=== PATIENT | male | born 1945 | race Caucasian/White ===

== ENCOUNTER → 2017-08-04 | Outpatient (CLI) | payer OTHER ==
--- NOTE | 2017-08-04 16:22 | CONS ---
CONSULTATION REASON FOR CONSULTATION: Consultation for sleep apnea. HISTORY: 72-year-old male patient, concerned of sleep apnea and he was referred to me for evaluation. He is sleeping excessively between midnight and 8:00 am, and he takes nap between 2:00 pm and 4:00 pm. At times, he feels sleepy and tired and at other times he sleeps because he is bored. He is not sure if he snores as he does not have any bed partner. He wakes up sometimes tired and fatigued and as mentioned he sleeps during the day and takes naps. No recent weight gain or weight loss. No family history of sleep apnea. Fountain score is at 8. No falling asleep while day-to-day activities or while driving. PAST MEDICAL HISTORY: 1. Coronary artery disease with previous coronary intervention and stenting. 2. Stage III chronic renal failure. 3. History of transient ischemic attack. 4. Abdominal aortic aneurysm status post endovascular stent grafting. 5. Chronic atrial fibrillation. 6. Benign position vertigo. SURGICAL HISTORY: Includes cardiac catheterization, insertion of coronary stents, endovascular stent grafting for abdominal aortic aneurysm, aortogram. DRUG ALLERGIES: Not known. OUTPATIENT MEDICATION LIST: Includes: 1. Coreg 6.25 mg p.o. b.i.d. 2. Aspirin 81 mg p.o. daily. 3. Lasix 40 mg p.o. daily. 4. Potassium 10 mEq p.o. daily. 5. Iron 325 mg p.o. daily. 6. Coumadin therapy 5 mg Mondays and and 2.5 mg rest of the week. 7. Lipitor 80 mg p.o. daily. SOCIAL HISTORY: Nonsmoker. No history of alcohol. No history of IV drugs. FAMILY HISTORY: Negative for sleep apnea. REVIEW OF SYSTEMS: 12-point review of system was done. Positive findings are all mentioned above in the history of present illness. Of significance is the absence of any waking up choking or gasping for air. No insomnia. No grinding of the teeth. No sleepwalking. No dry mouth. No anxiety or panic attacks. No palpitation. No heartburn. No restlessness in the lower extremities. No sleepwalking or sleep talking. No gasping for air. No anxiety. No irritability. No depression. No sexual dysfunction. No cataplexy. No sleep paralysis. No hallucinations. PHYSICAL EXAMINATION: BP is 134/72, pulse 66, respirations 16, temp 97.3, saturation 95% on room air. Weight is 187, height is 5 feet 10 inches. Neck size 15-3/4 of an inch. Fountain score is at 8. BMI 26.4. GENERAL APPEARANCE: Calm comfortable. HEENT Mallampati class IV. There is no goiter or neck mass. LUNGS: Clear to auscultation. HEART: Sounds regular rhythm. Normal S1, S2. ABDOMEN: Soft, nontender. No organomegaly. EXTREMITIES: No edema. No cyanosis or clubbing. IMPRESSION: 1. Obstructive sleep apnea suspected under investigation, my overall clinical suspicion is low. 2. Loud snoring. 3. Mallampati class 4. 4. Chronic renal failure with stage 3 kidney disease. 5. Coronary artery disease with previous coronary intervention and stenting. 6. Transient ischemic attack history of. 7. Abdominal aortic aneurysm status post endovascular stent grafting. 8. Chronic atrial fibrillation. 9. Benign positional vertigo. PLAN: 1. Proceed with a home sleep study. 2. Further recommendations are to follow based on the results of the home sleep study. 3. My overall suspicion for significant sleep apnea is low. MMODL / IJN: [id number] /
== END ==
LOC: SLEEP 14:58
PROVIDERS: ATTEND Internal Medicine Critical Care Medicine
DX: G47.30 Sleep apnea, unspecified (principal); N18.3 Chronic kidney disease, stage 3 (moderate); I25.10 Atherosclerotic heart disease of native coronary artery without angina pectoris; I71.4 Abdominal aortic aneurysm, without rupture; I48.2 Chronic atrial fibrillation; H81.10 Benign paroxysmal vertigo, unspecified ear; Z86.73 Personal history of transient ischemic attack (TIA), and cerebral infarction without residual deficits; Z79.899 Other long term (current) drug therapy; Z79.82 Long term (current) use of aspirin; Z79.01 Long term (current) use of anticoagulants
CPT/HCPCS: 99211

== ENCOUNTER 2018-11-17 12:08 | Emergency (ER) | payer OTHER, MEDICARE ==
[2018-11-17] MEDS ORDERED: SODIUM CHLORIDE 0.9% 500 ML 500 ML IV STA (13:20)
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
[2018-11-17 14:11] LABS: Basophils # (A) 0.1 k/uL (0-0.2); Basophils % (A) 1 %; Eosinophils # (A) 0.2 k/uL (0-0.7); Eosinophils % (A) 2 %; HCT 43.4 % (39.0-53.0); HGB 13.8 gm/dL (13.0-17.5); Lymphocytes % (A) 12 %; MCH 29.7 pg (25.0-35.0); MCHC 31.9 g/dL (31.0-37.0); MCV 93.1 fL (80.0-100.0); Mean Platelet Volume 7.1; Monocytes # (A) 0.5 k/uL (0-1.0); Monocytes % (A) 6 %; Neutrophils # (A) 6.9 k/uL (1.3-7.7); Neutrophils % (A) 78 %; Platelet Count 196 k/uL (150-450); RBC 4.66 m/uL (4.30-5.90); RDW 14.7 % (11.5-15.5); WBC 8.8 k/uL (3.8-10.6)
[2018-11-17 14:19] LABS: Partial Thromboplastin Time 27.5 sec (22.0-30.0); Prothrombin Time 19.4 sec (9.0-12.0)
[2018-11-17 14:33] LABS: Albumin 4.1 g/dL (3.5-5.0); Potassium 5.1 mmol/L (3.5-5.1); Total Bilirubin 1.8 mg/dL (0.2-1.3); Total Protein 7.3 g/dL (6.3-8.2)
[2018-11-17 14:57] LABS: Troponin I 0.03 ng/mL (0.000-0.034)
[2018-11-17 15:01] LABS: Amorphous Sediment,Urine Rare /hpf; Appearance,Urine Clear (Clear); Bilirubin,Urine Negative (Negative); Blood,Urine Trace (Negative); Color,Urine Yellow; Glucose,Urine (UA) Negative (Negative); Hyaline Casts,Urine 23 /lpf (0-2); Ketones,Urine Negative (Negative); Leukocyte Esterase,Urine Negative (Negative); Mucus,Urine Rare /hpf; Nitrite,Urine Negative (Negative); Protein,Urine 1+ (Negative); RBC,Urine 2 /hpf (0-5); Squamous Epithelial Cell,Urine <1 /hpf (0-4); Urobilinogen,Urine <2.0 mg/dL (<2.0); WBC,Urine 1 /hpf (0-5)
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
[2018-11-17 15:11] VITALS: RESP 16
[2018-11-17] MEDS ORDERED: CYCLOBENZAPRINE 10MG STARTER 3 TAB BTL PO STA (16:10)
[2018-11-17 16:30] VITALS: BP 139/79; PULSE 60; TEMP 98.5
== END 2018-11-17 16:37 | disposition home or self-care (01) ==
LOC: EC 12:08
DX: M54.6 Pain in thoracic spine (principal); S29.9XXA Unspecified injury of thorax, initial encounter; I13.10 Hypertensive heart and chronic kidney disease without heart failure, with stage 1 through stage 4 chronic kidney disease, or unspecified chronic kidney disease; I25.10 Atherosclerotic heart disease of native coronary artery without angina pectoris; N18.3 Chronic kidney disease, stage 3 (moderate); E78.5 Hyperlipidemia, unspecified; I10 Essential (primary) hypertension; I48.91 Unspecified atrial fibrillation; Z87.891 Personal history of nicotine dependence; Z79.01 Long term (current) use of anticoagulants; Z79.82 Long term (current) use of aspirin; Z79.899 Other long term (current) drug therapy; Z95.5 Presence of coronary angioplasty implant and graft; V99.XXXA Unspecified transport accident, initial encounter; Y93.89 Activity, other specified; Y92.410 Unspecified street and highway as the place of occurrence of the external cause
CPT/HCPCS: 36415; 71250; 74176; 80053; 81001; 82550; 82553; 84484; 85025; 85610; 85730; 86850; 86900; 86901; 93005; 99285

== ENCOUNTER 2020-01-08 11:27 | Inpatient (IN) | payer OTHER, MEDICARE ==
[2020-01-08] MEDS ORDERED: AMPICILLIN-SULBACTAM 3 GM in SODIUM CHLORIDE 0.9% 100 ML IVPB STA (12:00)
--- NOTE | 2020-01-08 12:02 | ED ---
Skin/Abscess/FB HPI - General Chief complaint: Skin/Abscess/Foreign Body Stated complaint: colitis problem Time Seen by Provider: 01/08/20 11:30 Source: patient Mode of arrival: wheelchair Limitations: no limitations - History of Present Illness Initial comments: The patient is a 74-year-old male with past nuchal history of A. fib, stage III kidney failure who presents to the emergency department with reported right foot cellulitis. States he started developing pain, swelling and redness to his right foot on December 29. He went and saw his primary care doctor placed him on Bactrim. States that he is done with the course of the antibiotics for his cellulitis persists. Admits that he ate possibly had one episode previously in the past. Extremities tender to walk on and therefore is using crutches. He normally goes to the gym [address] is also been unable to be physically active due to the infection. Denies any fevers or chills. No nausea or vomiting. Has been taking the antibiotic as directed. Denies any trauma to the extremity. No history of gout. No calf pain or swelling. There are no other alleviating, precipitating or modifying factors - Related Data Home Medications Medication Instructions Recorded Confirmed Aspirin EC [Ecotrin Low Dose] 81 mg PO DAILY 11/17/18 01/08/20 Atorvastatin [Lipitor] 80 mg PO HS 11/17/18 01/08/20 Enalapril [Vasotec] 20 mg PO HS 11/17/18 01/08/20 Metoprolol Succinate [Toprol XL] 50 mg PO HS 11/17/18 01/08/20 Warfarin Sodium [Coumadin] 2.5 mg PO SUMOWEFR 11/17/18 01/08/20 Warfarin Sodium [Coumadin] 5 mg PO TUTHSA 11/17/18 01/08/20 Furosemide [Lasix] 40 mg PO DAILY 01/08/20 01/08/20 Potassium Chloride ER [K-Dur 10] 10 meq PO DAILY 01/08/20 01/08/20 Allergies Allergy/AdvReac Type Severity Reaction Status Date / Time No Known Allergies Allergy Verified 01/08/20 14:25 Review of Systems ROS Statement: Those systems with pertinent positive or pertinent negative responses have been documented in the HPI. ROS Other: All systems not noted in ROS Statement are negative. Past Medical History Past Medical History: Atrial Fibrillation, Coronary Artery Disease (CAD), Hyperlipidemia, Hypertension, Renal Disease Additional Past Medical History / Comment(s): stage 3 renal failure History of Any Multi-Drug Resistant Organisms: None Reported Past Surgical History: Heart Catheterization With Stent Additional Past Surgical History / Comment(s): aaa repair 5 cardiac stents Past Psychological History: No Psychological Hx Reported Smoking Status: Former smoker Past Alcohol Use History: None Reported Past Drug Use History: None Reported General Exam Limitations: no limitations General appearance: alert, in no apparent distress Eye exam: Present: normal appearance, PERRL, EOMI. Absent: scleral icterus, conjunctival injection, periorbital swelling Respiratory exam: Present: normal lung sounds bilaterally. Absent: respiratory distress, wheezes, rales, rhonchi, stridor Cardiovascular Exam: Present: regular rate, normal rhythm, normal heart sounds. Absent: systolic murmur, diastolic murmur, rubs, gallop, clicks GI/Abdominal exam: Present: soft, normal bowel sounds. Absent: distended, tenderness, guarding, rebound, rigid Extremities exam: Present: pedal edema, other (right foot is warm and red to the touch. Significant dry skin to left heel and plantar aspect. 2+ DP and PT pulses. cellulitic changes only involve dorsal foot. Compartments soft. No calf pain, swelling or redness. ) Course Vital Signs 01/08/20 01/08/20 11:29 14:00 Temperature 97.4 F L Pulse Rate 76 66 Respiratory 18 18 Rate Blood Pressure 146/90 O2 Sat by Pulse 99 98 Oximetry Medical Decision Making - Medical Decision Making Upon arrival the patient was placed in room 20. A thorough history and physical exam was performed. Peripheral IV was established. Laboratory studies were conducted. The patient went over for an x-ray of his right foot which did not demonstrate any signs of ST myelitis. Soft tissue edema present. Patient has multiple lab abnormalities including an INR of 7.2. Creatinine is 3.0. Lactic acid is 1.3. Discuss results with the patient. He was given a dose of Unasyn in the emergency department after blood cultures were obtained. Because the patient's multiple lab abnormalities to did recommend admission in order to hold the nephrotoxins and provide the patient with fluids. I will repeat the INR and creatinine tomorrow. The patient did agree to this treatment plan. He was then awaiting a bed on the floor. Dr. Murphy was accepting doctor. - Lab Data Result diagrams: 01/09/20 06:53 01/09/20 06:53 Lab Results 01/08/20 01/08/20 01/08/20 Range/Units 12:09 12:09 12:09 WBC 10.5 (3.8-10.6) k/uL RBC 5.10 (4.30-5.90) m/uL Hgb 15.4 (13.0-17.5) gm/dL Hct 47.4 (39.0-53.0) % MCV 93.0 (80.0-100.0) fL MCH 30.2 (25.0-35.0) pg MCHC 32.4 (31.0-37.0) g/dL RDW 14.4 (11.5-15.5) % Plt Count 289 (150-450) k/uL Neutrophils % 79 % Lymphocytes % 9 % Monocytes % 9 % Eosinophils % 1 % Basophils % 0 % Neutrophils # 8.3 H (1.3-7.7) k/uL Lymphocytes # 1.0 (1.0-4.8) k/uL Monocytes # 0.9 (0-1.0) k/uL Eosinophils # 0.1 (0-0.7) k/uL Basophils # 0.0 (0-0.2) k/uL ESR (0-15) mm/hr PT (9.0-12.0) sec INR (<1.2) Sodium 139 (137-145) mmol/L Potassium 5.1 (3.5-5.1) mmol/L Chloride 104 (98-107) mmol/L Carbon Dioxide 23 (22-30) mmol/L Anion Gap 12 mmol/L BUN 48 H (9-20) mg/dL Creatinine 3.06 H (0.66-1.25) mg/dL Est GFR (CKD-EPI)AfAm 22 (>60 ml/min/1.73 sqM) Est GFR (CKD-EPI)NonAf 19 (>60 ml/min/1.73 sqM) Glucose 79 (74-99) mg/dL Plasma Lactic Acid Jj 1.3 (0.7-2.0) mmol/L Uric Acid (3.5-8.5) mg/dL Calcium 9.0 (8.4-10.2) mg/dL Total Bilirubin 0.4 (0.2-1.3) mg/dL AST 44 (17-59) U/L ALT 14 (4-49) U/L Alkaline Phosphatase 93 (38-126) U/L C-Reactive Protein (<10.0) mg/L Total Protein 7.5 (6.3-8.2) g/dL Albumin 4.2 (3.5-5.0) g/dL 01/08/20 01/08/20 01/08/20 Range/Units 12:09 12:09 12:09 WBC (3.8-10.6) k/uL RBC (4.30-5.90) m/uL Hgb (13.0-17.5) gm/dL Hct (39.0-53.0) % MCV (80.0-100.0) fL MCH (25.0-35.0) pg MCHC (31.0-37.0) g/dL RDW (11.5-15.5) % Plt Count (150-450) k/uL Neutrophils % % Lymphocytes % % Monocytes % % Eosinophils % % Basophils % % Neutrophils # (1.3-7.7) k/uL Lymphocytes # (1.0-4.8) k/uL Monocytes # (0-1.0) k/uL Eosinophils # (0-0.7) k/uL Basophils # (0-0.2) k/uL ESR 29 H (0-15) mm/hr PT 74.4 H (9.0-12.0) sec INR 7.2 H* (<1.2) Sodium (137-145) mmol/L Potassium (3.5-5.1) mmol/L Chloride (98-107) mmol/L Carbon Dioxide (22-30) mmol/L Anion Gap mmol/L BUN (9-20) mg/dL Creatinine (0.66-1.25) mg/dL Est GFR (CKD-EPI)AfAm (>60 ml/min/1.73 sqM) Est GFR (CKD-EPI)NonAf (>60 ml/min/1.73 sqM) Glucose (74-99) mg/dL Plasma Lactic Acid Jj (0.7-2.0) mmol/L Uric Acid 7.6 (3.5-8.5) mg/dL Calcium (8.4-10.2) mg/dL Total Bilirubin (0.2-1.3) mg/dL AST (17-59) U/L ALT (4-49) U/L Alkaline Phosphatase (38-126) U/L C-Reactive Protein (<10.0) mg/L Total Protein (6.3-8.2) g/dL Albumin (3.5-5.0) g/dL 01/08/20 Range/Units 12:09 WBC (3.8-10.6) k/uL RBC (4.30-5.90) m/uL Hgb (13.0-17.5) gm/dL Hct (39.0-53.0) % MCV (80.0-100.0) fL MCH (25.0-35.0) pg MCHC (31.0-37.0) g/dL RDW (11.5-15.5) % Plt Count (150-450) k/uL Neutrophils % % Lymphocytes % % Monocytes % % Eosinophils % % Basophils % % Neutrophils # (1.3-7.7) k/uL Lymphocytes # (1.0-4.8) k/uL Monocytes # (0-1.0) k/uL Eosinophils # (0-0.7) k/uL Basophils # (0-0.2) k/uL ESR (0-15) mm/hr PT (9.0-12.0) sec INR (<1.2) Sodium (137-145) mmol/L Potassium (3.5-5.1) mmol/L Chloride (98-107) mmol/L Carbon Dioxide (22-30) mmol/L Anion Gap mmol/L BUN (9-20) mg/dL Creatinine (0.66-1.25) mg/dL Est GFR (CKD-EPI)AfAm (>60 ml/min/1.73 sqM) Est GFR (CKD-EPI)NonAf (>60 ml/min/1.73 sqM) Glucose (74-99) mg/dL Plasma Lactic Acid Jj (0.7-2.0) mmol/L Uric Acid (3.5-8.5) mg/dL Calcium (8.4-10.2) mg/dL Total Bilirubin (0.2-1.3) mg/dL AST (17-59) U/L ALT (4-49) U/L Alkaline Phosphatase (38-126) U/L C-Reactive Protein 39.0 H (<10.0) mg/L Total Protein (6.3-8.2) g/dL Albumin (3.5-5.0) g/dL Disposition Clinical Impression: Cellulitis of right foot Disposition: ADMITTED IP TO THIS [facility] Condition: Stable Is patient prescribed a controlled substance at d/c from ED?: No Decision to Admit Reason: Admit from EC Decision Date: 01/08/20 Decision Time: 13:36
[2020-01-08 12:24] LABS: Basophils % (A) 0 %; Eosinophils # (A) 0.1 k/uL (0-0.7); Eosinophils % (A) 1 %; HCT 47.4 % (39.0-53.0); HGB 15.4 gm/dL (13.0-17.5); Lymphocytes % (A) 9 %; MCH 30.2 pg (25.0-35.0); MCHC 32.4 g/dL (31.0-37.0); Mean Platelet Volume 7.9; Monocytes # (A) 0.9 k/uL (0-1.0); Monocytes % (A) 9 %; Neutrophils # (A) 8.3 k/uL (1.3-7.7); Neutrophils % (A) 79 %; Platelet Count 289 k/uL (150-450); RDW 14.4 % (11.5-15.5); WBC 10.5 k/uL (3.8-10.6)
--- NOTE | 2020-01-08 12:25 | XR ---
EXAMINATION TYPE: XR foot complete RT DATE OF EXAM: 01/08/2020 COMPARISON: NONE HISTORY: Soft tissue swelling cellulitis TECHNIQUE: Three views are submitted. FINDINGS: The osseous structures are intact. There is no acute fracture or dislocation. Joint spaces are p reserved. There is diffuse soft tissue edema. No destructive changes. Hammertoe deformities noted. Ch ronic appearing ossification adjacent to base fifth metatarsal. IMPRESSION: 1. No acute fracture or dislocation. If symptoms persist, follow-up exam in 7 to 10 days could be ob tained. 2. Soft tissue edema correlate for trauma or cellulitis. No destructive changes.
[2020-01-08 12:36] LABS: Albumin 4.2 g/dL (3.5-5.0); Potassium 5.1 mmol/L (3.5-5.1); Total Bilirubin 0.4 mg/dL (0.2-1.3); Total Protein 7.5 g/dL (6.3-8.2)
[2020-01-08 13:15] LABS: Prothrombin Time 74.4 sec (9.0-12.0)
[2020-01-08 13:18] LABS: INR 7.2 (<1.2)
[2020-01-08] MEDS ORDERED: SODIUM CHLORIDE 0.9% 1,000 ML IV ONE (13:33)
[2020-01-08] MEDS ORDERED: NALOXONE 0.4 MG/ML 1 ML VIAL IV PRN (13:37)
[2020-01-08] MEDS: SODIUM CHLORIDE 0.9% 1,000 ML IV SCH ×2 (13:52→20:52)
[2020-01-08] MEDS ORDERED: HYDROcodone/APAP 5-325MG 1 EACH TAB PO PRN (15:45)
[2020-01-08] MEDS ORDERED: ACETAMINOPHEN TAB 500 MG TAB PO PRN (15:45)
[2020-01-08] MEDS ORDERED: ALPRAZolam 0.25 MG TAB PO PRN (15:45)
[2020-01-08] MEDS: AMPICILLIN-SULBACTAM 3 GM in SODIUM CHLORIDE 0.9% 100 ML IVPB SCH ×2 (17:00→23:52)
--- NOTE | 2020-01-08 19:41 | XR ---
EXAMINATION TYPE: XR chest 1V portable DATE OF EXAM: 01/08/2020 COMPARISON: NONE HISTORY: Extremity swelling TECHNIQUE: 2 views FINDINGS: Heart is enlarged. There is no heart failure. There are no hilar masses. Costophrenic angle s are clear. There is left axillary pacemaker with the lead tips in the right ventricle. Thoracic aor ta is atheromatous. IMPRESSION: No active cardiopulmonary disease. Cardiomegaly.
[2020-01-08] MEDS: METOPROLOL SUCCINATE (ER) 50 MG TAB.ER.24H PO SCH (20:51)
--- NOTE | 2020-01-08 20:54 | HP ---
HISTORY AND PHYSICAL DATE OF SERVICE: 01/08/2020. CHIEF COMPLAINTS: Right foot swelling and as well as Coumadin coagulopathy. HISTORY OF PRESENT ILLNESS: This 74-year-old gentleman with a past medical history of multiple medical problems, history of atrial fibrillation, CAD, hypertension, hyperlipidemia, history of CAD/stent being followed by [facility] in the outpatient setting also had chronic kidney stage 3. The patient's creatinine was normally. The patient also had right foot cellulitis. Patient recently received Bactrim and currently the patient is complaining of pain. Continue the pain and swelling and the patient had difficulty in walking also. The patient came to [facility] and was admitted for further evaluation and treatment. On admission, evaluation showed INR was 7.2 and creatinine 3.6, indicating acute on chronic renal failure as well Coumadin coagulopathy. There is no active GI bleeding at this time. The patient is admitted to the hospital for further evaluation and treatment. There is no history of fever, rigors or chills. No history of headache, loss of consciousness or seizures. PAST MEDICAL HISTORY: History of atrial fibrillation, CAD, hypertension, hyperlipidemia, history of renal failure, history of CAD/stent. MEDICATIONS: Home medications are: 1. Coumadin 2.5 mg p.o. Thursday, Thursday, Thursday, Thursday and 5 mg Thursday, , Thursday. 2. Toprol-XL 50 mg q.h.s. 3. Vasotec 20 mg q.h.s. 4. Lipitor 80 mg q.h.s. 5. K-Dur 10 mEq p.o. daily. 6. Lasix 40 mg daily. 7. Ecotrin 81 mg daily. ALLERGIES: None. FAMILY HISTORY: No history of heart disease or strokes in the family. SOCIAL HISTORY: Previous history of smoking. No history of current smoking. No alcohol intake. REVIEW OF SYSTEMS: ENT: No diminished vision. No diminished hearing. CARDIOVASCULAR system as mentioned earlier. GI no nausea or vomiting. as mentioned earlier. NERVOUS SYSTEMS: As mentioned earlier. ALLERGIES/IMMUNOLOGY: No asthma or hayfever. MUSCULOSKELETAL as mentioned earlier. HEMATOLOGY/ONCOLOGY: As mentioned earlier. ENDOCRINE: as mentioned earlier. CONSTITUTIONAL: As mentioned earlier. DERMATOLOGY: Negative. RHEUMATOLOGY: Negative. PSYCHIATRY: As mentioned earlier. PHYSICAL EXAMINATION: Alert and oriented times two. Pulse 58. Blood pressure 160/80, respiration 18, temp 97.5, pulse ox 98% on room air. HEENT: Conjunctivae normal. Oral mucosa moist. NECK is no jugular venous distention. No carotid bruit. No lymph node enlargement. CARDIOVASCULAR SYSTEM: S1, S2 muffled. No S3, no S4. RESPIRATIONS: Breath sounds diminished in the bases. No rhonchi. No crackles. ABDOMEN: Soft, nontender. No mass palpable. LEGS: Right leg significant swelling and erythema. Painful movements also. LYMPHATICS: No lymph nodes palpable in the neck, axillae or groin. SKIN: No ulcer, no rashes and no bleeding. JOINTS: No active deforming arthropathy. NERVOUS SYSTEM: Higher functions as mentioned earlier. Cranial nerves 2 thru 12 grossly intact. Moves all 4 limbs. No focal deficits. LAB STUDIES: WBC 10.2, hemoglobin 16.5 and INR 7.2. Sodium 139, potassium 5.1, creatinine 3.06. ASSESSMENT: 1. Acute right foot cellulitis with failure of outpatient treatment. 2. Acute renal failure, acute on chronic renal failure. 3. Chronic kidney disease stage 3 baseline. 4. Coumadin coagulopathy. 5. History of atrial fibrillation. 6. History of coronary artery disease. 7. Hypertension. 8. Hyperlipidemia. 9. History of coronary artery disease, stent. 10.History of abdominal aortic aneurysm repair. 11.History of cardiac stents x5. 12.Remote history of nicotine dependence. RECOMMENDATIONS AND DISCUSSION: In this 74-year-old gentleman who presented with multiple medical issues, at this time, we will monitor the patient closely. I will hold the Coumadin. We will continue the empiric antibiotics and IV Unasyn. I would also recommend infectious disease evaluation and I would also recommend a serum uric acid. Otherwise, the prognosis is guarded and we will provide symptomatic treatment. Guarded prognosis. Further recommendations to follow. A foot x-ray was done in the ER which showed no acute fractures noted. Soft tissue edema was noted. Repeat x-ray was recommended in 7 to 10 days if symptoms persist by radiology. Again prognosis guarded. A copy of this dictation being forwarded. To Dr. Crain at [facility]. MMODL / IJN: [id number] / [facility]
[2020-01-08 22:08] LABS: Appearance,Urine Clear (Clear); Bilirubin,Urine Negative (Negative); Blood,Urine Trace (Negative); Color,Urine Light Yellow; Glucose,Urine (UA) Negative (Negative); Ketones,Urine Negative (Negative); Leukocyte Esterase,Urine Negative (Negative); Nitrite,Urine Negative (Negative); Protein,Urine Negative (Negative); RBC,Urine 3 /hpf (0-5); Specific Gravity,Urine 1.017 (1.001-1.035); Urobilinogen,Urine <2.0 mg/dL (<2.0); WBC,Urine <1 /hpf (0-5)
[2020-01-09] MEDS: AMPICILLIN-SULBACTAM 3 GM in SODIUM CHLORIDE 0.9% 100 ML IVPB SCH ×4 (05:47→23:20)
[2020-01-09 07:07] LABS: Basophils % (A) 0 %; Eosinophils # (A) 0.2 k/uL (0-0.7); Eosinophils % (A) 3 %; HCT 41.8 % (39.0-53.0); HGB 13.4 gm/dL (13.0-17.5); Lymphocytes # (A) 1.1 k/uL (1.0-4.8); Lymphocytes % (A) 13 %; MCHC 32.1 g/dL (31.0-37.0); MCV 93.6 fL (80.0-100.0); Mean Platelet Volume 8.3; Monocytes # (A) 0.9 k/uL (0-1.0); Monocytes % (A) 10 %; Neutrophils # (A) 6.1 k/uL (1.3-7.7); Neutrophils % (A) 71 %; Platelet Count 241 k/uL (150-450); RBC 4.47 m/uL (4.30-5.90); RDW 14.2 % (11.5-15.5); WBC 8.6 k/uL (3.8-10.6)
[2020-01-09 07:23] LABS: Potassium 4.8 mmol/L (3.5-5.1)
[2020-01-09] MEDS: PANTOPRAZOLE 40 MG TABLET PO SCH (07:24)
[2020-01-09 07:31] LABS: Prothrombin Time 70.8 sec (9.0-12.0)
[2020-01-09 07:55] LABS: INR 6.9 (<1.2)
--- NOTE | 2020-01-09 10:47 | P.NPCON ---
History of Present Illness - Reason for Consult acute renal failure, chronic renal failure - History of Present Illness Reason for consultation: Acute kidney injury on chronic kidney disease History of present illness: Patient is a 74-year-old male seen in renal consultation for acute kidney injury on chronic kidney disease. Patient has chronic kidney disease stage III with baseline creatinine in the range of 2-2.5. Etiology is nephrosclerosis. Patient states he follows with a controlled area checker out of [facility]. He presented to the hospital due to right foot cellulitis. He states he noticed erythema about 10 days ago. He denies any drainage. He did complete 7 day course of Bactrim which she states he was taking twice daily. On admission his creatinine was 3.06 and is 2.36 today. Oral intake is good. No vomiting or diarrhea. No chest pain or shortness of breath. He does take diuretics at home which are currently held. No history of diabetes. No family history of renal disease. Denies use of nonsteroidals. He is afebrile. Hemodynamically stable. Vital signs are stable. General: The patient appeared well nourished and normally developed. HEENT: Head exam is unremarkable. Neck is without jugular venous distension. LUNGS: Lungs are clear to auscultation and percussion. Breath sounds decreased. HEART: Rate and Rhythm are regular. First and second heart sounds normal. No mur murs, rubs or gallops. ABDOMEN: Abdominal exam reveals normal bowel sounds. Non-tender and non-dist ended. No evidence of peritonitis. EXTREMITITES: Trace edema. Past Medical History Past Medical History: Atrial Fibrillation, Coronary Artery Disease (CAD), Hyp erlipidemia, Hypertension, Renal Disease Additional Past Medical History / Comment(s): stage 3 renal failure History of Any Multi-Drug Resistant Organisms: None Reported Past Surgical History: Heart Catheterization With Stent Additional Past Surgical History / Comment(s): aaa repair 5 cardiac stents Past Anesthesia/Blood Transfusion Reactions: No Reported Reaction Date of Last Stent Placement:: Jul 2007 Past Psychological History: No Psychological Hx Reported Smoking Status: Former smoker Past Alcohol Use History: None Reported Past Drug Use History: None Reported Medications and Allergies Home Medications Medication Instructions Recorded Confirmed Type Aspirin EC [Ecotrin Low Dose] 81 mg PO DAILY 11/17/18 01/08/20 History Atorvastatin [Lipitor] 80 mg PO HS 11/17/18 01/08/20 History Enalapril [Vasotec] 20 mg PO HS 11/17/18 01/08/20 History Metoprolol Succinate [Toprol XL] 50 mg PO HS 11/17/18 01/08/20 History Warfarin Sodium [Coumadin] 2.5 mg PO SUMOWEFR 11/17/18 01/08/20 History Warfarin Sodium [Coumadin] 5 mg PO TUTHSA 11/17/18 01/08/20 History Furosemide [Lasix] 40 mg PO DAILY 01/08/20 01/08/20 History Potassium Chloride ER [K-Dur 10] 10 meq PO DAILY 01/08/20 01/08/20 History Allergies Allergy/AdvReac Type Severity Reaction Status Date / Time No Known Allergies Allergy Verified 01/08/20 14:25 Physical Exam Vitals: Vital Signs Temp Pulse Pulse Pulse Resp BP BP 01/09/20 08:00 57 L 16 01/09/20 07:00 98.1 F 57 L 16 110/57 01/09/20 04:00 17 01/09/20 02:15 98.0 F 66 17 138/78 01/08/20 23:49 15 01/08/20 20:00 98.0 F 62 76 19 121/57 01/08/20 15:00 97.5 F L 58 L 18 165/80 01/08/20 14:57 62 18 135/89 01/08/20 14:00 66 18 01/08/20 11:29 97.4 F L 76 18 146/90 Pulse Ox 01/09/20 08:00 01/09/20 07:00 93 L 01/09/20 04:00 01/09/20 02:15 98 01/08/20 23:49 01/08/20 20:00 96 01/08/20 15:00 98 01/08/20 14:57 98 01/08/20 14:00 98 01/08/20 11:29 99 Intake and Output 01/08/20 01/09/20 01/09/20 22:59 06:59 14:59 Intake Total 240 640 Output Total 1200 Balance 240 -560 Intake: Intake, IV Titration 440 Amount Ampicillin-Sulbactam 3 gm 200 In Sodium Chloride 0.9% 100 ml @ 200 mls/hr IVPB Q6HR [facility] Rx#:[id number] Sodium Chloride 0.9% 1, 240 000 ml @ 20 mls/hr IV . Q24H [facility] Rx#:[id number] Oral 240 200 Output: Urine 1200 Other: Voiding Method Urinal Urinal Weight 81.647 kg Results - Lab Results Most recent lab results Calcium 8.0 mg/dL (8.4-10.2) L 01/09/20 06:53 01/09/20 06:53 01/09/20 06:53 Assessment and Plan Plan: Assessment: 1. Acute kidney injury secondary to Bactrim which will impair creatinine secretion. Renal function better today. Creatinine 2.36. No proteinuria on UA. 2. Chronic kidney disease stage III with baseline creatinine in the range of 2- 2.5 secondary to nephrosclerosis. 3. Right foot cellulitis maintained on antibiotics. 4. Hypertension with chronic kidney disease. Controlled. 5. Metabolic acidosis secondary to acute kidney injury and IV fluids. Plan: Avoid nephrotoxins. Encourage oral intake. Check renal ultrasound. Continue to monitor renal function and urine output. Thank you for the consultation. I will continue to follow the patient with you during his hospital stay.
[2020-01-09] MEDS ORDERED: PHYTONADIONE ORAL 5 MG/5 ML ORAL.SYRG PO STA (12:57)
--- NOTE | 2020-01-09 13:44 | US ---
EXAMINATION TYPE: US venous doppler duplex LE RT DATE OF EXAM: 01/09/2020 1:26 PM COMPARISON: NONE CLINICAL HISTORY: redness/swelling. SIDE PERFORMED: Right TECHNIQUE: The lower extremity deep venous system is examined utilizing real time linear array sonog luis armando with graded compression, doppler sonography and color-flow sonography. VESSELS IMAGED: External Iliac Vein (EIV) Common Femoral Vein Deep Femoral Vein Greater Saphenous Vein * Femoral Vein Popliteal Vein Small Saphenous Vein * Proximal Calf Veins (* superficial vessels) There is normal flow, compressibility, vascular waveforms Right Leg: Negative for DVT IMPRESSION: No evident deep venous thrombosis at or above the right knee.
--- NOTE | 2020-01-09 16:50 | CDI ---
Documentation Clarification Form Date: 01/09/2020 04:38:40 PM From: Barbi Mike RN, CCDS Admit Date: 01/08/2020 01:37:00 PM Patient Name: Yash Hurtado Visit Number: [id number] ATTENTION: The Clinical Documentation Specialists (CDI) and [facility] Coding Staff appreciate your assistance in clarifying documentation. Please respond to the clarification below the line at the bottom and electronically sign. The CDI & [facility] Coding staff will review the response and follow-up if needed. Please note: Queries are made part of the Legal Health Record. If you have any questions, please contact the author of this message via ITS. Dr. Moriah Murphy Atrial Fibrillation is documented in the H&P and requires further specificity. History/Risk Factors: CAD, HTN, Stents x 5, AAA, nicotine dependence, CKD stage 3 Clinical Indicators: 01/07 H&P: "Coumadin coagulopathy. History of atrial fibrillation." EKG/telemetry: not ordered Treatment: Toprol XL 50 mg PO HS Coumadin on hold r/t INR 7.2/6.9 In your professional opinion, can you please clarify the type of Atrial Fibrillation, if known? Chronic/Permanent Paroxysmal Persistent Other, please specify Unable to determine (Last Revision: January 2018) Unable to determine MTDD
[2020-01-09 17:03] LABS: Glucose,Whole Blood 89 mg/dL (75-99)
[2020-01-09] MEDS: INSULIN ASPART (NovoLOG) 100 UNIT/ML VIAL SQ SCH ×2 (17:04→21:11)
[2020-01-09] MEDS: methylPREDNISolone SOD SUCCI 125 MG/2 ML VIAL IV SCH ×2 (17:12→23:19)
--- NOTE | 2020-01-09 20:34 | PN ---
PROGRESS NOTE DATE OF SERVICE: 01/09/2020 His 74-year-old gentleman with a past medical history of multiple medical problems admitted with features of significant infection of the right foot with swelling and also renal failure and Coumadin coagulopathy. Coumadin has been on hold, but still the INR is elevated at 6.9. The patient is off Coumadin. Creatinine is 2.3. The patient is on cautious IV hydration. Nephrology following the patient closely with multiple other consultants. PAST MEDICAL HISTORY: Reviewed. REVIEW OF SYMPTOMS: CARDIOVASCULAR: S1, S2. RESPIRATIONS: As mentioned earlier. GI: As mentioned earlier. no dysuria or retention. MEDICATIONS: Current medications are: 1. Tylenol p.r.n. 2. [place] 5 mg q.6h. 3. Xanax 0.25 t.i.d. 4. Unasyn 3 grams IV q.6h. 5. NovoLog scale. 6. Solu-Medrol 60 IV q.8h. 7. Toprol-XL. 8. Narcan. 9. Protonix. PHYSICAL EXAM: Patient is alert, oriented x3. Pulse 57, blood pressure 122/64. Respiratory rate 16. Temperature 98.2, pulse ox 94% on room air. HEENT: Conjunctivae normal. NECK: No JVD. CARDIOVASCULAR: S1, S2 muffled. RESPIRATORY SYSTEM: Breath sounds diminished at the bases. No rhonchi. No crackles. ABDOMEN: Soft, nontender. LEGS is no edema, significant swelling and pain in the left foot. CENTRAL NERVOUS SYSTEM: No focal deficits. LABS: WBC 8.2, hemoglobin 13.5 and INR 6.9, creatinine 2.36. ASSESSMENT: 1. Acute right foot cellulitis with swelling and failure of outpatient treatment. Rule out acute gout. 2. Acute renal failure, acute on chronic renal failure. 3. Chronic kidney stage 3 baseline. 4. Coumadin coagulopathy. 5. History of atrial fibrillation. 6. History of coronary artery disease. 7. Hypertension. 8. Hyperlipidemia. 9. History of coronary artery disease, stent. 10.History of abdominal aortic aneurysm repair. 11.History of cardiac stent x3. 12.Remote history of nicotine dependence. RECOMMENDATIONS AND DISCUSSION: In this 74-year-old gentleman who presented with multiple complex medical issues. We will monitor the patient closely, continue the current medications. Symptomatic treatment. Otherwise, I recommend ultrasound of the right leg for DVT. Short course of high-dose IV steroids. Continue the rest of medications. Prognosis guarded. Further recommendations to follow. MMODL / IJN: [id number] /
[2020-01-09 20:49] LABS: Glucose,Whole Blood 119 mg/dL (75-99)
[2020-01-09] MEDS: SODIUM CHLORIDE 0.9% 1,000 ML IV SCH (21:11)
[2020-01-09] MEDS: METOPROLOL SUCCINATE (ER) 50 MG TAB.ER.24H PO SCH (21:11)
[2020-01-10] MEDS: AMPICILLIN-SULBACTAM 3 GM in SODIUM CHLORIDE 0.9% 100 ML IVPB SCH ×2 (05:15→12:00)
[2020-01-10] MEDS: methylPREDNISolone SOD SUCCI 125 MG/2 ML VIAL IV SCH ×2 (05:15→11:58)
[2020-01-10 06:51] LABS: Glucose,Whole Blood 131 mg/dL (75-99)
[2020-01-10 07:26] LABS: Basophils % (A) 0 %; Eosinophils % (A) 0 %; HCT 44.4 % (39.0-53.0); HGB 14.1 gm/dL (13.0-17.5); Lymphocytes # (A) 0.5 k/uL (1.0-4.8); Lymphocytes % (A) 5 %; MCH 29.6 pg (25.0-35.0); MCHC 31.8 g/dL (31.0-37.0); MCV 93.1 fL (80.0-100.0); Mean Platelet Volume 7.9; Monocytes # (A) 0.2 k/uL (0-1.0); Monocytes % (A) 2 %; Neutrophils # (A) 11.2 k/uL (1.3-7.7); Neutrophils % (A) 94 %; Platelet Count 287 k/uL (150-450); RBC 4.76 m/uL (4.30-5.90); RDW 14.2 % (11.5-15.5)
[2020-01-10 07:37] LABS: INR 1.8 (<1.2)
[2020-01-10 07:41] LABS: Calcium 8.7 mg/dL (8.4-10.2); Magnesium 2.4 mg/dL (1.6-2.3); Potassium 5.1 mmol/L (3.5-5.1)
[2020-01-10] MEDS: INSULIN ASPART (NovoLOG) 100 UNIT/ML VIAL SQ SCH ×2 (07:41→12:01)
[2020-01-10] MEDS: PANTOPRAZOLE 40 MG TABLET PO SCH (07:41)
[2020-01-10 08:36] VITALS: TEMP 97.5
--- NOTE | 2020-01-10 10:43 | P.PN ---
Subjective Patient is seen in follow-up for acute kidney injury on chronic kidney disease. GFR is at baseline. Has good urine output. Denies chest pain or shortness of breath. Oral intake is good. Vital signs are stable. General: The patient appeared well nourished and normally developed. HEENT: Head exam is unremarkable. Neck is without jugular venous distension. LUNGS: Lungs are clear to auscultation and percussion. Breath sounds decreased. HEART: Rate and Rhythm are regular. First and second heart sounds normal. No murmurs, rubs or gallops. ABDOMEN: Abdominal exam reveals normal bowel sounds. Non-tender and non- distended. No evidence of peritonitis. EXTREMITITES: Trace edema. Objective - Vital Signs Vital signs: Vital Signs Temp 97.5 F L 01/10/20 07:00 Pulse 69 01/10/20 07:00 Resp 17 01/10/20 07:00 BP 148/88 01/10/20 07:00 Pulse Ox 92 L 01/10/20 02:40 Intake & Output 01/09/20 01/10/20 01/10/20 18:59 06:59 18:59 Intake Total 100 660 Output Total 600 Balance 100 60 Intake: Intake, IV Titration 100 440 Amount Ampicillin-Sulbactam 3 gm 100 200 In Sodium Chloride 0.9% 100 ml @ 200 mls/hr IVPB Q6HR [facility] Rx#:[id number] Sodium Chloride 0.9% 1, 240 000 ml @ 20 mls/hr IV . Q24H [facility] Rx#:[id number] Oral 220 Output: Urine 600 Other: Voiding Method Urinal Toilet Urinal # Voids 1 # Bowel Movements 1 - Labs CBC & Chem 7: 01/10/20 06:34 01/10/20 06:34 Labs: Abnormal Lab Results - Last 24 Hours (Table) 01/09/20 01/10/20 01/10/20 Range/Units 20:47 06:34 06:34 WBC 12.0 H (3.8-10.6) k/uL Neutrophils # 11.2 H (1.3-7.7) k/uL Lymphocytes # 0.5 L (1.0-4.8) k/uL PT 18.0 H (9.0-12.0) sec INR 1.8 H (<1.2) Sodium (137-145) mmol/L Carbon Dioxide (22-30) mmol/L BUN (9-20) mg/dL Creatinine (0.66-1.25) mg/dL Glucose (74-99) mg/dL POC Glucose (mg/dL) 119 H (75-99) mg/dL Magnesium (1.6-2.3) mg/dL 01/10/20 01/10/20 Range/Units 06:34 06:40 WBC (3.8-10.6) k/uL Neutrophils # (1.3-7.7) k/uL Lymphocytes # (1.0-4.8) k/uL PT (9.0-12.0) sec INR (<1.2) Sodium 136 L (137-145) mmol/L Carbon Dioxide 21 L (22-30) mmol/L BUN 31 H (9-20) mg/dL Creatinine 2.14 H (0.66-1.25) mg/dL Glucose 128 H (74-99) mg/dL POC Glucose (mg/dL) 131 H (75-99) mg/dL Magnesium 2.4 H (1.6-2.3) mg/dL Microbiology - Last 24 Hours (Table) 01/08/20 12:09 Blood Culture - Preliminary Blood No Growth after 24 hours Assessment and Plan Plan: Assessment: 1. Acute kidney injury secondary to Bactrim which will impair creatinine secretion. Renal function improving. Creatinine 2.14. No proteinuria on UA. 2. Chronic kidney disease stage III with baseline creatinine in the range of 2- 2.5 secondary to nephrosclerosis. 3. Right foot cellulitis maintained on antibiotics. 4. Hypertension with chronic kidney disease. Controlled. 5. Metabolic acidosis secondary to acute kidney injury and IV fluids. Plan: Avoid nephrotoxins. Encourage oral intake. Continue to monitor renal function and urine output.
[2020-01-10 11:33] LABS: Glucose,Whole Blood 146 mg/dL (75-99)
[2020-01-10 15:27] VITALS: BP 174/89; PULSE 72; RESP 18
--- NOTE | 2020-01-10 23:53 | DS ---
DISCHARGE SUMMARY DATE OF SERVICE: 01/10/2020 FINAL DIAGNOSES: 1. Acute right foot cellulitis and swelling with failure of outpatient treatment, possibly acute gout with cellulitis. 2. Acute renal failure, acute on chronic renal failure. 3. Chronic renal failure, kidney disease stage 3 baseline. 4. Coumadin coagulopathy, improved. 5. History atrial fibrillation. 6. History of coronary artery disease. 7. Hypertension. 8. History of hyperlipidemia. 9. History of coronary artery disease, stent. 10.History of abdominal aortic aneurysm repair. 11.History of cardiac stent x3. 12.Remote history of nicotine dependence. DISCHARGE DISPOSITION: The patient will be discharged in stable condition with guarded prognosis. Total time taken 35 minutes. HISTORY OF PRESENT ILLNESS: This 74-year-old gentleman with a past medical history of multiple medical problems admitted with acute right foot cellulitis and renal failure and Coumadin coagulopathy. Patient treated with antibiotics. Patient improved significantly. The patient was also given some steroids with some significant improvement of the leg swelling and cellulitis process. INR was more than 7 and improved to 1.8. Recommended a lower dose of Coumadin. Creatinine also improved to 0.14 and Lasix has been held. The patient will be discharged in stable condition with guarded prognosis. DISCHARGE INSTRUCTIONS: 1. Diet is cardiac. 2. Activity limited until followup. 3. Follow up with [facility] in 1-2 days. 4. Follow up with Nephrology as recommended. DISCHARGE MEDICATIONS: 1. Ecotrin 81 mg p.o. daily. 2. Lipitor 80 mg q.h.s. 3. Toprol-XL 50 mg p.o. q.h.s. 4. Augmentin 875 mg 1 p.o. b.i.d. 5. Coumadin 2.5 mg daily. Please note changed dose. 6. Lasix 20 mg p.o. daily per Nephrology. 7. Prednisone 40 mg p.o. daily for 3 days, 30 for 3 days, 20 for 3 days and then 10 for 3 days. Once again, the patient being discharged in stable condition with guarded prognosis. MMODL / IJN: [id number] /
== END 2020-01-10 15:53 | disposition home or self-care (01) | DRG 603 ==
LOC: EC 11:27 → 4SSUR 13:37
PROVIDERS: ADMIT Hospitalist; ATTEND Hospitalist
DX: L03.115 Cellulitis of right lower limb (principal); N17.9 Acute kidney failure, unspecified; E87.2 Acidosis; N18.3 Chronic kidney disease, stage 3 (moderate); I12.9 Hypertensive chronic kidney disease with stage 1 through stage 4 chronic kidney disease, or unspecified chronic kidney disease; I48.91 Unspecified atrial fibrillation; I25.10 Atherosclerotic heart disease of native coronary artery without angina pectoris; E78.5 Hyperlipidemia, unspecified; R79.1 Abnormal coagulation profile; T45.515A Adverse effect of anticoagulants, initial encounter; T36.8X5A Adverse effect of other systemic antibiotics, initial encounter; M10.9 Gout, unspecified; R26.2 Difficulty in walking, not elsewhere classified; Z79.82 Long term (current) use of aspirin; Z79.01 Long term (current) use of anticoagulants; Z79.899 Other long term (current) drug therapy; Z95.5 Presence of coronary angioplasty implant and graft; Z87.891 Personal history of nicotine dependence; Z86.79 Personal history of other diseases of the circulatory system
CPT/HCPCS: 36415; 71045; 80048; 80053; 81001; 83605; 83735; 84550; 85025; 85610; 85652; 86140; 87040; 93005; 96361; 96365; 99284